=== PATIENT | female | born 1970 ===

== ENCOUNTER 2018-04-05 08:51 | Day surgery (SDC) | payer OTHER ==
[2018-04-05] MEDS ORDERED: ONDANSETRON 4 MG/2 ML VIAL IV ONE (08:52)
[2018-04-05] MEDS ORDERED: CEFAZOLIN 1 G VIAL MC ONE (08:52)
[2018-04-05] MEDS ORDERED: IV LACTATED RINGERS SOLUTION 1,000 ML BAG IV ONE (08:52)
[2018-04-05] MEDS ORDERED: LIDOCAINE-MPF 2% 5 ML VIAL MC ONE (08:52)
[2018-04-05] MEDS ORDERED: PROPOFOL 200 MG/20 ML BOTTLE IV ONE (08:52)
[2018-04-05] MEDS ORDERED: SEVOFLURANE 250 ML BOTTLE IH ONE (08:52)
[2018-04-05] MEDS ORDERED: BUPIVACAINE 0.25% 30 ML VIAL ONE (09:20)
[2018-04-05] MEDS ORDERED: MORPHINE SULFATE PF 10 MG/10 ML AMPUL IV ONE (09:20)
[2018-04-05 09:32] LABS: *URINE HCG, QUAL NEGATIVE (NEGATIVE)
[2018-04-05] MEDS ORDERED: FENTANYL CITRATE 100 MCG/2 ML AMPUL ONE ×2 (10:36→12:12)
[2018-04-05] MEDS ORDERED: SUCCINYLCHOLINE CHLORIDE 200 MG/10 ML VIAL ONE (10:37)
[2018-04-05] MEDS ORDERED: ONDANSETRON 4 MG/2 ML VIAL ONE (12:12)
[2018-04-05] MEDS ORDERED: HYDROCODONE/APAP 5-325MG TABLET ONE (12:59)
== END 2018-04-05 13:55 | disposition home or self-care (01) ==
LOC: DS 08:51
PROVIDERS: ATTEND Orthopaedic Surgery
DX: M23.221 Derangement of posterior horn of medial meniscus due to old tear or injury, right knee (principal); Z90.49 Acquired absence of other specified parts of digestive tract; Z98.51 Tubal ligation status; Z98.890 Other specified postprocedural states; Z79.899 Other long term (current) drug therapy; E66.01 Morbid (severe) obesity due to excess calories
CPT/HCPCS: 29881; 84703; A4663; J0690; J2274; J2405 ×2; J3010; J3490 ×3; J7120 ×2; J0330